=== PATIENT | female | born 1970 | race Caucasian/White ===

== ENCOUNTER → 2017-03-18 | Outpatient (CLI) | payer OTHER ==
--- NOTE | 2017-04-21 14:46 | EST ---
EXERCISE STRESS HOLTER MONITOR: Patient was monitored between March 18 and April 11, 2017. The rhythm strip reviewed revealed a sinus mechanism with no evidence of tachy or jose rafael arrhythmia. MMODL / IJN: [id number] /
== END | disposition home or self-care (01) ==
LOC: RADECHMAIN 10:56
PROVIDERS: ATTEND Family Medicine
DX: R00.2 Palpitations (principal)
CPT/HCPCS: 93270; 93271

== ENCOUNTER → 2017-03-19 | Outpatient (CLI) | payer OTHER ==
--- NOTE | 2017-03-20 07:26 | CT ---
EXAMINATION TYPE: CT brain giuseppe pina DATE OF EXAM: 03/19/2017 COMPARISON: NONE HISTORY: Headache and neck pain, recent diagnosis of MS CT DLP: 1329 mGycm. Automated Exposure Control for Dose Reduction was Utilized. TECHNIQUE: CT scan of the head and cervical spine are performed without contrast. FINDINGS: There is no acute intracranial hemorrhage, mass effect, or midline shift identified. The ventricles and sulci are within normal limits in size. Oh-white matter differentiation is fairly w ell preserved. The globes are intact and the visualized sinuses are clear. Cervical spine is visualized in its entirety from C1 through upper thoracic levels and demonstrates s atisfactory alignment in the cervical spine without evidence of acute fracture or dislocation. There is levoconvex scoliotic curvature centered in the upper thoracic spine. Prevertebral soft tissue appe ars within normal limits. The C1-C2 articulation is within normal limits on the coronal images. Vertebral body heights are maintained. There is mild disc space narrowing C5-C6 level. No large poste rior disc herniations are seen on sagittal or axial images. Thyroid gland is heterogeneous but normal in size. Visualized lung apices are clear. There is partial visualization of surgical hardware in th e thoracic spine. IMPRESSION: 1. Mild disc space narrowing C5-C6 level. 2. No acute intracranial hemorrhage or midline shift is seen.
--- NOTE | 2017-03-20 07:30 | CT ---
EXAMINATION TYPE: CT thoracic spine wo con DATE OF EXAM: 03/19/2017 COMPARISON: NONE HISTORY: Pain, recent diagnosis of MS CT DLP: 1981(thoracic and abd pelvis) mGycm Automated exposure control for dose reduction was used. FINDINGS: There is levoconvex scoliosis centered in the upper thoracic spine and dextroconvex scoliotic curvatu re centered near thoracolumbar junction. There are large Ordonez rods scoliotic correction surgery extending from roughly T4 level into the lumbar spine. There is straightening of spine on sagittal i mages. Artifact from metallic hardware makes evaluation suboptimal. Spinal canal is grossly preserved . Vertebral body heights and disc space heights are maintained. No significant spurring is seen. Review of axial images shows no suspicious abnormality. Visualized lungs are grossly clear. Please re angel to same day CT abdomen and pelvis report for complete details on the abdominal structures. IMPRESSION: SCOLIOSIS WITH LONG SEGMENT THORACOLUMBAR CORRECTION SURGERY.
--- NOTE | 2017-03-20 07:33 | CT ---
EXAMINATION TYPE: CT abdomen pelvis wo con DATE OF EXAM: 03/19/2017 HISTORY: Recent diagnosis of MS with abdominal pain CT DLP: 1981 mGycm. Automated Exposure Control for Dose Reduction was Utilized. TECHNIQUE: CT scan of the abdomen and pelvis is performed without oral or IV contrast. COMPARISON: NONE FINDINGS: Within the limitations of a non-contrast study, the following observations are made. LUNG BASES: No significant abnormality is appreciated. LIVER/GB: Stones in contracted gallbladder identified. No surrounding inflammatory change is seen. PANCREAS: No significant abnormality is seen. SPLEEN: No significant abnormality is seen. ADRENALS: No significant abnormality is seen. KIDNEYS: There is mild right-sided pyelocaliectasis and proximal to mid hydroureter without obstructi ng stone. No renal calculi are seen bilaterally. No left-sided hydronephrosis is present. Scattered p elvic phleboliths are seen. BOWEL: Debris-filled stomach is seen. There is no suspicious small or large bowel dilatation. Normal- appearing appendix is seen from cecum in the right lower quadrant. GENITAL ORGANS: Uterus is surgically absent or markedly atrophic. LYMPH NODES: No greater than 1cm abdominal or pelvic lymph nodes are appreciated. OSSEOUS STRUCTURES: There is partial visualization of large Ordonez rods from scoliosis correction surgery. There is reactive levoconvex scoliosis centered in the lower lumbar spine. OTHER: No significant additional abnormality is seen. IMPRESSION: Gallstones without secondary ultrasound evidence for acute cholecystitis. Mild right-side d hydronephrosis without obstructing mass or calculus clearly seen. Consider vesicoureteric reflux as possible etiology.
== END | disposition home or self-care (01) ==
LOC: RADCTMAIN 13:14
PROVIDERS: ATTEND Family Medicine
DX: K80.20 Calculus of gallbladder without cholecystitis without obstruction (principal); M41.85 Other forms of scoliosis, thoracolumbar region; M48.02 Spinal stenosis, cervical region; N13.30 Unspecified hydronephrosis; G35 Multiple sclerosis; R00.2 Palpitations; M85.80 Other specified disorders of bone density and structure, unspecified site
CPT/HCPCS: 70450; 72125; 72128; 74176